=== PATIENT | female | born 1980 | race Caucasian/White ===

== ENCOUNTER 2022-05-27 08:42 | Emergency (ER) | payer BC, OTHER ==
[~2022-05-27] VITALS: Ht 172.7 cm; Wt 63.5 kg
--- NOTE | 2022-05-27 09:08 | ED Abdominal Pain ---
General Chief Complaint: Abdominal/GI Problems Stated Complaint: ABD PAIN; BLOODY STOOL History of Present Illness Date Seen by Provider: May 27, 2022 Time Seen by Provider: 08:56 Initial Comments 41-year-old female from out of town here with complaints of abdominal pain and bloody diarrhea. Patient states that that started this morning about 01/03/1930. They were at a school visiting with her son. They she started having some midline abdominal generalized pain. Patient did excuse her self and was gone for about 15 minutes that she states the she had explosive diarrhea with bright red blood. She would flush the toilet and have it happen again. No fever chills. Patient does have sensation of being cold. She would with the pain gets bad she would feel some nausea. No major medical history. She does have some chronic cystitis. Allergies and Home Medications Allergies Coded Allergies: Sulfa (Sulfonamide Antibiotics) (Verified Allergy, Unknown, 05/27/22) Patient Home Medication List Home Medication List Reviewed: Yes Review of Systems Review of Systems Constitutional: see HPI Past Jyrfrza-Nwwmiu-Ubmcrg Hx Patient Social History Tobacco Use?: No Physical Exam Vital Signs Vital Signs - First Documented 05/27/22 08:46 Temp 35.9 Pulse 78 Resp 18 B/P (MAP) 149/80 (103) Pulse Ox 100 O2 Delivery Room Air Capillary Refill : Height/Weight/BMI Height: '" Weight: lbs. oz. kg; BMI Method: General Appearance: mild distress HEENT: PERRL/EOMI, pharynx normal Neck: supple, normal inspection Respiratory: lungs clear, normal breath sounds Cardiovascular: regular rate, rhythm, no murmur Gastrointestinal: tenderness (epigastric area, left lower quadrant, periumbilical pain) Rectal: normal exam; No black stool, No blood streaked stool Progress/Results/Core Measures Results/Orders Lab Results Laboratory Tests Test 05/27/22 09:20 Range/Units White Blood Count 7.5 4.3-11.0 10^3/uL Red Blood Count 4.86 3.80-5.11 10^6/uL Hemoglobin 14.7 11.5-16.0 g/dL Hematocrit 43 35-52 % Mean Corpuscular Volume 89 80-99 fL Mean Corpuscular Hemoglobin 30 25-34 pg Mean Corpuscular Hemoglobin Concent 34 32-36 g/dL Red Cell Distribution Width 12.5 10.0-14.5 % Platelet Count 379 130-400 10^3/uL Mean Platelet Volume 8.6 L 9.0-12.2 fL Immature Granulocyte % (Auto) 0 % Neutrophils (%) (Auto) 80 H 42-75 % Lymphocytes (%) (Auto) 13 12-44 % Monocytes (%) (Auto) 4 0-12 % Eosinophils (%) (Auto) 2 0-10 % Basophils (%) (Auto) 1 0-10 % Neutrophils # (Auto) 6.0 1.8-7.8 10^3/uL Lymphocytes # (Auto) 1.0 1.0-4.0 10^3/uL Monocytes # (Auto) 0.3 0.0-1.0 10^3/uL Eosinophils # (Auto) 0.1 0.0-0.3 10^3/uL Basophils # (Auto) 0.1 0.0-0.1 10^3/uL Immature Granulocyte # (Auto) 0.0 0.0-0.1 10^3/uL Urine Color YELLOW Urine Clarity SL CLOUDY Urine pH 5.0 5-9 Urine Specific [place] >=1.030 1.016-1.022 Urine Protein NEGATIVE NEGATIVE Urine Glucose (UA) NEGATIVE NEGATIVE Urine Ketones TRACE H NEGATIVE Urine Nitrite NEGATIVE NEGATIVE Urine Bilirubin NEGATIVE NEGATIVE Urine Urobilinogen 0.2 < = 1.0 MG/DL Urine Leukocyte Esterase NEGATIVE NEGATIVE Urine RBC (Auto) TRACE-I H NEGATIVE Urine RBC 0-2 /HPF Urine WBC RARE /HPF Urine Squamous Epithelial Cells 5-10 /HPF Urine Crystals NONE /LPF Urine Bacteria NEGATIVE /HPF Urine Casts NONE /LPF Urine Mucus MODERATE H /LPF Urine Culture Indicated NO Sodium Level 141 135-145 MMOL/L Potassium Level 4.5 3.6-5.0 MMOL/L Chloride Level 107 98-107 MMOL/L Carbon Dioxide Level 25 21-32 MMOL/L Anion Gap 9 5-14 MMOL/L Blood Urea Nitrogen 14 7-18 MG/DL Creatinine 0.66 0.60-1.30 MG/DL Estimat Glomerular Filtration Rate 112 BUN/Creatinine Ratio 21 Glucose Level 101 70-105 MG/DL Calcium Level 9.1 8.5-10.1 MG/DL Corrected Calcium 8.5-10.1 MG/DL Total Bilirubin 0.2 0.1-1.0 MG/DL Aspartate Amino Transf (AST/SGOT) 16 5-34 U/L Alanine Aminotransferase (ALT/SGPT) 13 0-55 U/L Alkaline Phosphatase 69 40-136 U/L Total Protein 7.6 6.4-8.2 GM/DL Albumin 4.6 H 3.2-4.5 GM/DL Amylase Level 51 25-125 U/L Lipase 32 8-78 U/L Serum Test, Qualitative NEGATIVE NEGATIVE My Orders Orders - GAURI AREVALO MD Comprehensive Metabolic Panel (05/27/22 09:08) Lipase (05/27/22 09:08) Amylase (05/27/22 09:08) Ua Culture If Indicated (05/27/22 09:08) Hcg,Qualitative Serum (05/27/22 09:08) Cbc With Automated Diff (05/27/22 09:08) Ct Abdomen/Pelvis W (05/27/22 09:08) C Difficile Ag + Toxin A/B. (05/27/22 09:52) Isolation Central Supply Req (05/27/22 09:52) Iohexol Injection (Omnipaque 350 Mg/Ml 1 (05/27/22 10:15) Received Contrast (Hold Metformin- Contr (05/27/22 10:15) Sodium Chloride Flush (Catheter Flush Sy (05/27/22 10:15) Ns (Ivpb) (Sodium Chloride 0.9% Ivpb Bag (05/27/22 10:15) Ns Iv 1000 Ml (Sodium Chloride 0.9%) (05/27/22 11:15) Ns Iv 1000 Ml (Sodium Chloride 0.9%) (05/27/22 12:15) Medications Given in ED Current Medications Medications Dose Ordered Sig/[place] Route Start Time Stop Time Status Last Admin Dose Admin Iohexol 75 ml ONCE ONCE IV 05/27/22 10:15 05/27/22 10:16 DC 05/27/22 10:34 75 ML Sodium Chloride 10 ml NEEDED PRN IV 05/27/22 10:15 05/27/22 10:10 10 ML Sodium Chloride 100 ml ONCE ONCE IV 05/27/22 10:15 05/27/22 10:16 DC 05/27/22 10:34 100 ML Vital Signs/I&O 05/27/22 08:46 Temp 35.9 Pulse 78 Resp 18 B/P (MAP) 149/80 (103) Pulse Ox 100 O2 Delivery Room Air CT Results/Progress Notes NAME: JENNIFER VICTORIA [facility] REC#: [id number] PT STATUS: REG ER : 1980 PHYSICIAN: GAURI AREVALO MD ADMIT DATE: 05/27/22/ER FS Draft Date of Exam:05/27/22 CT ABDOMEN/PELVIS W PROCEDURE: CT abdomen and pelvis with contrast. TECHNIQUE: Multiple contiguous axial images were obtained through the abdomen and pelvis after administration of intravenous contrast. Auto Exposure Controls were utilized during the CT exam to meet ALARA standards for radiation dose reduction. All CT scans use one or more of the following dose optimizing techniques: automated exposure control, MA and/or KvP adjustment based on patient size and exam type or iterative reconstruction. DATE: May 27, 2022. COMPARISON: None. INDICATION: 41-year-old female, sudden onset severe abdominal pain. Hematochezia. FINDINGS: The visualized portions of the lung bases are clear. There is a partially imaged right breast implant and potentially also present on the left. The heart is not enlarged. There is no pericardial effusion. The liver is unremarkable in size and contour. There is no identified liver lesion. The main, right, and left portal veins are patent. The gallbladder is unremarkable. There is no biliary ductal dilation. Unremarkable appearance of the pancreas. The spleen is normal in size. The adrenal glands are unremarkable. Unremarkable appearance of the renal parenchyma. The urinary collecting systems are not distended. There is contrast in the urinary collecting systems. The urinary bladder is nondistended and not well evaluated. There is abnormal wall thickening and mucosal enhancement of the rectum and sigmoid colon. There is also abnormal mucosal enhancement and wall thickening of small bowel most notably present in the lower abdomen and pelvis. The intestinal tract is not distended. There is no free intraperitoneal air. There is no identified drainable fluid collection. There is no sizable volume free pelvic fluid. There is a very small fat-containing umbilical hernia. There are atherosclerotic calcifications. There is nonspecific stranding in the anterior abdominal wall subcutaneous tissues. There is no identified abnormally enlarged lymph node in the abdomen or pelvis which specifically meets CT size criteria for adenopathy. There is no identified acute bony abnormality. There are advanced disc degenerative changes at L5-S1 with mild bilateral facet degenerative changes at L5-S1. IMPRESSION: CT ABDOMEN AND PELVIS. 1. Abnormal wall thickening and mucosal enhancement of the rectum and sigmoid colon as well as of distal small bowel most compatible with an infectious or an inflammatory colitis and enteritis. Dictated on workstation # [id number] Dict: 05/27/22 1050 Trans: 05/27/22 1154 [facility] [id number] Interpreted by: ISRAEL WEST MD Electronically signed by: Departure Impression Primary Impression: Diarrhea Qualified Codes: A09 - Infectious gastroenteritis and colitis, unspecified Disposition: HOME, SELF-CARE Condition: Stable Departure-Patient Inst. Decision time for Depature: 12:06 Referrals: NO,LOCAL PHYSICIAN (PCP/Family) Primary Care Physician Patient Instructions: Colitis Add. Discharge Instructions: Take antibiotics as prescribed. Follow-up with primary care physician when you return home. Return to ER if symptoms worsen All discharge instructions reviewed with patient and/or family. Voiced understanding. Scripts Metronidazole (Metronidazole) 500 Mg Tablet 500 MG PO TID for 10 Days, #30 TAB 0 Refills Prov: GAURI AREVALO MD 05/27/22 Ciprofloxacin HCl (Ciprofloxacin HCl) 500 Mg Tablet 500 MG PO BID for 10 Days, #20 TAB 0 Refills Prov: GAURI AREVALO MD 05/27/22 GAURI AREVALO MD May 27, 2022 09:08
[2022-05-27 09:26] LABS: BILIRUBIN,URINE NEGATIVE (NEGATIVE); CLARITY,URINE SL CLOUDY; COLOR,URINE YELLOW; GLUCOSE, URINE (UA) NEGATIVE (NEGATIVE); KETONES,URINE TRACE (NEGATIVE); LEUKOCYTE ESTERASE ,URINE NEGATIVE (NEGATIVE); NITRITE,URINE NEGATIVE (NEGATIVE); PROTEIN,URINE NEGATIVE (NEGATIVE)
[2022-05-27 09:28] LABS: BASOPHILS # (AUTO) 0.1 10^3/uL (0.0-0.1); BASOPHILS % (AUTO) 1 % (0-10); EOSINOPHILS # (AUTO) 0.1 10^3/uL (0.0-0.3); EOSINOPHILS % (AUTO) 2 % (0-10); HEMATOCRIT 43 % (35-52); HEMOGLOBIN 14.7 g/dL (11.5-16.0); LYMPHOCYTES % (AUTO) 13 % (12-44); MEAN CORPUSCULAR HEMOGLOBIN 30 pg (25-34); MEAN CORPUSCULAR HGB CONC 34 g/dL (32-36); MEAN CORPUSCULAR VOLUME 89 fL (80-99); MEAN PLATELET VOLUME 8.6 fL (9.0-12.2); MONOCYTES # (AUTO) 0.3 10^3/uL (0.0-1.0); MONOCYTES % (AUTO) 4 % (0-12); NEUTROPHILS % (AUTO) 80 % (42-75); PLATELET COUNT 379 10^3/uL (130-400); WHITE BLOOD COUNT 7.5 10^3/uL (4.3-11.0)
[2022-05-27 09:38] LABS: BACTERIA,URINE NEGATIVE /HPF; RBC,URINE 0-2 /HPF; WBC,URINE RARE /HPF
[2022-05-27 09:57] LABS: AMYLASE 51 U/L (25-125); LIPASE 32 U/L (8-78)
[2022-05-27 10:01] LABS: POTASSIUM 4.5 MMOL/L (3.6-5.0); SODIUM 141 MMOL/L (135-145)
[2022-05-27 10:02] LABS: ALANINE AMINOTRANSFERASE 13 U/L (0-55); ALBUMIN 4.6 GM/DL (3.2-4.5); ALKALINE PHOSPHATASE 69 U/L (40-136); BILIRUBIN,TOTAL 0.2 MG/DL (0.1-1.0); BUN/CREATININE RATIO 21; CALCIUM 9.1 MG/DL (8.5-10.1); CARBON DIOXIDE 25 MMOL/L (21-32); CHLORIDE 107 MMOL/L (98-107); CREATININE SERUM 0.66 MG/DL (0.60-1.30); GFR ESTIMATED 112; GLUCOSE 101 MG/DL (70-105); TOTAL PROTEIN 7.6 GM/DL (6.4-8.2)
[2022-05-27] MEDS ORDERED: CATHETER FLUSH 10 ML SYR IV PRN (10:15)
[2022-05-27] MEDS ORDERED: HOLD METFORMIN - RECEIVED CONTRAST 20 ML VIAL IV SCH (10:15)
[2022-05-27] MEDS ORDERED: IOHEXOL 350 MG/ML 100 ML (OMNIPAQUE 350) VIAL IV ONE (10:15)
[2022-05-27] MEDS ORDERED: NS 100 ML (IVPB) BAG IV ONE (10:15)
[2022-05-27 11:05] VITALS: BP 124/76
[2022-05-27] MEDS ORDERED: NS IV 1000 ML 1,000 ML IV SCH ×2 (11:15→12:15)
--- NOTE | 2022-05-27 11:55 | Diagnostic Imaging Report ---
PROCEDURE: CT abdomen and pelvis with contrast. TECHNIQUE: Multiple contiguous axial images were obtained through the abdomen and pelvis after administration of intravenous contrast. Auto Exposure Controls were utilized during the CT exam to meet ALARA standards for radiation dose reduction. All CT scans use one or more of the following dose optimizing techniques: automated exposure control, MA and/or KvP adjustment based on patient size and exam type or iterative reconstruction. DATE: May 27, 2022. COMPARISON: None. INDICATION: 41-year-old female, sudden onset severe abdominal pain. Hematochezia. FINDINGS: The visualized portions of the lung bases are clear. There is a partially imaged right breast implant and potentially also present on the left. The heart is not enlarged. There is no pericardial effusion. The liver is unremarkable in size and contour. There is no identified liver lesion. The main, right, and left portal veins are patent. The gallbladder is unremarkable. There is no biliary ductal dilation. Unremarkable appearance of the pancreas. The spleen is normal in size. The adrenal glands are unremarkable. Unremarkable appearance of the renal parenchyma. The urinary collecting systems are not distended. There is contrast in the urinary collecting systems. The urinary bladder is nondistended and not well evaluated. There is abnormal wall thickening and mucosal enhancement of the rectum and sigmoid colon. There is also abnormal mucosal enhancement and wall thickening of small bowel most notably present in the lower abdomen and pelvis. The intestinal tract is not distended. There is no free intraperitoneal air. There is no identified drainable fluid collection. There is no sizable volume free pelvic fluid. There is a very small fat-containing umbilical hernia. There are atherosclerotic calcifications. There is nonspecific stranding in the anterior abdominal wall subcutaneous tissues. There is no identified abnormally enlarged lymph node in the abdomen or pelvis which specifically meets CT size criteria for adenopathy. There is no identified acute bony abnormality. There are advanced disc degenerative changes at L5-S1 with mild bilateral facet degenerative changes at L5-S1. IMPRESSION: CT ABDOMEN AND PELVIS. 1. Abnormal wall thickening and mucosal enhancement of the rectum and sigmoid colon as well as of distal small bowel most compatible with an infectious or an inflammatory colitis and enteritis. Dictated by: Dictated on workstation # [id number]
[2022-05-27] MEDS ORDERED: CIPR500T5 PO (12:12)
[2022-05-27] MEDS ORDERED: METR-145 PO (12:12)
== END 2022-05-27 12:20 | disposition home or self-care (01) ==
LOC: ER FS 08:44
DX: R19.7 Diarrhea, unspecified (principal); Z28.310 Unvaccinated for COVID-19
CPT/HCPCS: 36415; 74177; 80053; 81000; 82150; 82274; 83690; 84703; 85025; 87015; 87045; 87046; 87324; 87328; 87329; 87449; 87899; Q9967